=== PATIENT | female | born 1995 | race Caucasian/White ===

== ENCOUNTER 2020-07-11 12:28 | Emergency (ER) | payer OTHER ==
[~2020-07-11] VITALS: Ht 162.6 cm; Wt 98.9 kg
[2020-07-11 12:35] VITALS: Ht 162.6 cm; Wt 98.9 kg
[2020-07-11 14:27] VITALS: BP 101/44
== END 2020-07-11 14:27 | disposition home or self-care (01) ==
LOC: ED 12:28
DX: R07.2 Precordial pain (principal)
CPT/HCPCS: Q0092